=== PATIENT | male | born 1960 | race African-American/Black ===

== ENCOUNTER 2022-06-04 08:31 | Outpatient (CLI) | payer OTHER ==
[2022-06-04 09:02] LABS: PLATELET COUNT 118 K/uL (142-355)
== END 2022-06-04 19:22 | disposition home or self-care (01) ==
LOC: LABW 08:31
PROVIDERS: ATTEND Internal Medicine Medical Oncology
DX: D69.6 Thrombocytopenia, unspecified (principal)
CPT/HCPCS: 36415; 84153; 84165; 85027; 86038; 86334; 87536

== ENCOUNTER 2022-12-15 11:20 | Outpatient (CLI) | payer OTHER | END 2022-12-15 21:21 | disposition home or self-care (01) | LOC: US 11:20 | PROVIDERS: ATTEND Nurse Practitioner Family | DX: R10.32 Left lower quadrant pain (principal) ==